=== PATIENT | female | born 1960 | race Two or more races ===

== ENCOUNTER 2023-09-05 10:56 | Day surgery (SDC) | payer OTHER ==
[2023-08-30 11:11] VITALS: BMI 31.1
[2023-09-05] MEDS ORDERED: CARBACHOL 0.01% INTRA-OCULAR 1.5 ML VIAL ONE (11:31)
[2023-09-05] MEDS ORDERED: BSS (NA/CA/MG/K) BALANCED SALT SOLUTION OPHTH SOLN 15 ML BOTTLE ONE (11:31)
[2023-09-05] MEDS ORDERED: LIDOCAINE 1% P/F 10 MG/ML VIAL ONE (11:31)
[2023-09-05] MEDS: CYCLOPENTOLATE 2% OPHTH SOLN 2 ML BOTTLE ONE ×3 (11:35→11:45)
[2023-09-05] MEDS: CIPROFLOXACIN 0.3% EYE DROPS 5 ML BOTTLE ONE ×3 (11:35→11:45)
[2023-09-05] MEDS: TROPICAMIDE 1% OPHTH SOLN 15 ML BOTTLE ONE ×3 (11:35→11:45)
[2023-09-05] MEDS: PHENYLEPHRINE 2.5% OPTHALMIC DROP 2ML BOTTLE ONE ×3 (11:35→11:45)
[2023-09-05] MEDS ORDERED: MIDAZOLAM HCL 2 MG/2 ML SINGLE DOSE VIAL ONE (12:52)
[2023-09-05 13:35] VITALS: TEMP 97.4
[2023-09-05 13:43] VITALS: BP 122/69; PULSE 80; RESP 18
== END 2023-09-05 14:12 | disposition home or self-care (01) ==
LOC: FASU 10:56
PROVIDERS: ATTEND Ophthalmology
PROC: 08RJ3JZ Replacement of Right Lens with Synthetic Substitute, Percutaneous Approach (ICD-10-PCS; principal; 2023-09-05 13:05)
DX: H26.8 Other specified cataract (principal)
CPT/HCPCS: 66984; V2632